=== PATIENT | female | born 1995 ===

== ENCOUNTER → 2021-05-21 13:04 | Outpatient (BNVA) | payer OTHER, SELFPAY | PROVIDERS: PCP Internal Medicine; Visit Provider Nurse Practitioner Family ==

== ENCOUNTER → 2021-06-04 10:06 | Outpatient (BNVA) | payer OTHER, SELFPAY | PROVIDERS: PCP Internal Medicine; Visit Provider Nurse Practitioner Family ==

== ENCOUNTER → 2021-06-25 11:01 | Outpatient (BNVA) | payer OTHER, SELFPAY | PROVIDERS: Visit Provider Nurse Practitioner Family | DX: O26.899 Other specified pregnancy related conditions, unspecified trimester (principal); O99.320 Drug use complicating pregnancy, unspecified trimester; O99.340 Other mental disorders complicating pregnancy, unspecified trimester; G43.709 Chronic migraine without aura, not intractable, without status migrainosus; M54.2 Cervicalgia; F41.9 Anxiety disorder, unspecified; F12.90 Cannabis use, unspecified, uncomplicated | CPT/HCPCS: 99212 ==